=== PATIENT | female | born 1940 | race Two or more races ===

== ENCOUNTER 2020-03-21 10:48 | Emergency (ER) | payer OTHER ==
[~2020-03-21] VITALS: Ht 154.9 cm; Wt 46.7 kg
[2020-03-21] MEDS ORDERED: ADALAT CC90 MG (11:06)
[2020-03-21] MEDS ORDERED: HYZAAR 100-12.1 EACH (11:06)
[2020-03-21] MEDS ORDERED: XARELTO20 M1 (11:06)
[2020-03-21] MEDS ORDERED: ISOSORBIDE DINI30 MG (11:07)
[2020-03-21] MEDS ORDERED: LIPITOR20 MG (11:08)
== END 2020-03-21 16:02 | disposition home or self-care (01) ==
LOC: ER 10:48
DX: I73.89 Other specified peripheral vascular diseases (principal); I10 Essential (primary) hypertension

== ENCOUNTER 2020-05-06 16:29 | Emergency (ER) | payer OTHER ==
[~2020-05-06] VITALS: Ht 154.9 cm; Wt 47.6 kg
[~2020-05-06 16:29] MED LIST: ADALAT CC90 MG; HYZAAR 100-12.1 EACH; ISOSORBIDE DINI30 MG; LIPITOR20 MG; XARELTO20 M1
== END 2020-05-06 22:32 | disposition home or self-care (01) ==
LOC: ER 16:29 → CPU-OBS 16:31 → ER 16:31
DX: I11.0 Hypertensive heart disease with heart failure (principal); I50.9 Heart failure, unspecified; Z03.818 Encounter for observation for suspected exposure to other biological agents ruled out; R53.83 Other fatigue; R05 Cough

== ENCOUNTER 2020-09-15 16:44 | Emergency (ER) | payer OTHER ==
[~2020-09-15] VITALS: Ht 160 cm; Wt 52.2 kg
== END 2020-09-16 00:27 | disposition home or self-care (01) ==
LOC: ER 16:44
DX: N39.0 Urinary tract infection, site not specified (principal); E86.0 Dehydration; E87.8 Other disorders of electrolyte and fluid balance, not elsewhere classified; B96.29 Other Escherichia coli [E. coli] as the cause of diseases classified elsewhere; R31.29 Other microscopic hematuria; R53.81 Other malaise; G62.0 Drug-induced polyneuropathy; L29.8 Other pruritus; T50.8X5A Adverse effect of diagnostic agents, initial encounter; Y92.89 Other specified places as the place of occurrence of the external cause; Z03.818 Encounter for observation for suspected exposure to other biological agents ruled out

== ENCOUNTER 2020-09-16 18:13 | Emergency (ER) | payer OTHER ==
[~2020-09-16] VITALS: Ht 160 cm; Wt 51.7 kg
== END 2020-09-16 23:43 | disposition home or self-care (01) ==
LOC: ER 18:13
DX: G62.0 Drug-induced polyneuropathy (principal); L29.8 Other pruritus; T50.8X5A Adverse effect of diagnostic agents, initial encounter; Y92.89 Other specified places as the place of occurrence of the external cause

== ENCOUNTER 2020-09-20 20:35 | Inpatient (IN) | payer OTHER ==
[~2020-09-20] VITALS: Ht 61 cm; Wt 5.0 kg
[2020-09-23] MEDS ORDERED: ISOSORBIDE MONO30 MG PO (14:38)
[2020-09-23] MEDS ORDERED: LIPITOR20 MG PO (14:38)
[2020-09-23] MEDS ORDERED: PROCARDIA XL90 MG PO (14:38)
[2020-09-23] MEDS ORDERED: XARELTO15 MG PO (14:38)
== END 2020-09-23 16:12 | disposition home or self-care (01) | DRG 917 ==
LOC: ER 20:35 → SEC-K 09-21 09:28 → MEDJ 09-21 11:16 → MEDI 09-21 11:16 → SURH 09-21 20:20
PROVIDERS: ADMIT Internal Medicine; ATTEND Internal Medicine
PROC: B24BZZZ Ultrasonography of Heart with Aorta (ICD-10-PCS; principal; 2020-09-21)
PROC: BT43ZZZ Ultrasonography of Bilateral Kidneys (ICD-10-PCS; 2020-09-21)
PROC: 4A12X4Z Monitoring of Cardiac Electrical Activity, External Approach (ICD-10-PCS; 2020-09-21)
DX: T50.8X1A Poisoning by diagnostic agents, accidental (unintentional), initial encounter (principal); N17.0 Acute kidney failure with tubular necrosis; I50.30 Unspecified diastolic (congestive) heart failure; N14.1 Nephropathy induced by other drugs, medicaments and biological substances; I11.0 Hypertensive heart disease with heart failure; I48.91 Unspecified atrial fibrillation; E86.0 Dehydration; R79.89 Other specified abnormal findings of blood chemistry; I35.0 Nonrheumatic aortic (valve) stenosis

== ENCOUNTER 2020-10-02 20:51 | Emergency (ER) | payer OTHER ==
[~2020-10-02] VITALS: Ht 160 cm; Wt 53.1 kg
[~2020-10-02 20:51] MED LIST changes: +ISOSORBIDE MONO30 MG PO; +LIPITOR20 MG PO; +PROCARDIA XL90 MG PO; +XARELTO15 MG PO
== END 2020-10-03 03:28 | disposition home or self-care (01) ==
LOC: ER 20:51
DX: U07.1 COVID-19 (principal); J06.9 Acute upper respiratory infection, unspecified

== ENCOUNTER 2020-10-13 18:11 | Emergency (ER) | payer OTHER ==
[~2020-10-13] VITALS: Ht 160 cm; Wt 47.6 kg
== END 2020-10-13 21:26 | disposition home or self-care (01) ==
LOC: ER 18:11
DX: U07.1 COVID-19 (principal); R06.02 Shortness of breath

== ENCOUNTER 2020-11-07 18:27 | Emergency (ER) | payer OTHER ==
[~2020-11-07] VITALS: Ht 157.5 cm; Wt 58.1 kg
== END 2020-11-07 21:23 | disposition home or self-care (01) ==
LOC: ER 18:27
DX: U07.1 COVID-19 (principal)

== ENCOUNTER 2020-11-17 14:20 | Emergency (ER) | payer OTHER | END 2020-11-17 16:18 | disposition home or self-care (01) | LOC: ER 14:20 | DX: R53.81 Other malaise (principal); R51.9 Headache, unspecified; Z03.818 Encounter for observation for suspected exposure to other biological agents ruled out ==

== ENCOUNTER 2020-12-18 23:02 | Emergency (ER) | payer OTHER ==
[~2020-12-18] VITALS: Ht 157.5 cm; Wt 45.4 kg
== END 2020-12-19 10:35 | disposition home or self-care (01) ==
LOC: ER 23:02
DX: L03.818 Cellulitis of other sites (principal); L89.159 Pressure ulcer of sacral region, unspecified stage; B96.89 Other specified bacterial agents as the cause of diseases classified elsewhere; B95.2 Enterococcus as the cause of diseases classified elsewhere; B37.89 Other sites of candidiasis

== ENCOUNTER 2021-02-09 10:52 | Emergency (ER) | payer OTHER ==
[~2021-02-09] VITALS: Ht 162.6 cm; Wt 52.2 kg
[2021-02-09] MEDS ORDERED: ELIQUIS2.5 MG PO (11:22)
[2021-02-09] MEDS ORDERED: LASIX20 MG PO (11:22)
[2021-02-09] MEDS ORDERED: KAPSPARGO SPRIN25 MG PO (11:23)
== END 2021-02-09 13:09 | disposition home or self-care (01) ==
LOC: ER 10:52
DX: S40.021A Contusion of right upper arm, initial encounter (principal); X58.XXXA Exposure to other specified factors, initial encounter; Y93.89 Activity, other specified; Y92.89 Other specified places as the place of occurrence of the external cause; Y99.8 Other external cause status

== ENCOUNTER 2021-02-17 22:32 | Emergency (ER) | payer OTHER ==
[~2021-02-17] VITALS: Ht 162.6 cm; Wt 49.9 kg
[~2021-02-17 22:32] MED LIST changes: +ELIQUIS2.5 MG PO; +KAPSPARGO SPRIN25 MG PO; +LASIX20 MG PO
[2021-02-18] MEDS ORDERED: CEFUROXIME250 MG PO (03:14)
== END 2021-02-18 03:25 | disposition home or self-care (01) ==
LOC: ER 22:32
DX: N39.0 Urinary tract infection, site not specified (principal); R50.9 Fever, unspecified; Z20.822 Contact with and (suspected) exposure to COVID-19

== ENCOUNTER 2021-02-23 16:11 | Inpatient (IN) | payer OTHER ==
[~2021-02-23] VITALS: Ht 162.6 cm; Wt 45.4 kg
[~2021-02-23 16:11] MED LIST changes: +CEFUROXIME250 MG PO
--- NOTE | 2021-02-23 16:26 | NUR ---
PTE ALERTA Y ORIENTADA X3 EN SILLA DE [place]. PTE WANDA CONSIGO COPIA DE LABORATORIO DONDE PRESENTA CREATININA EN 2.48 DE HACEN 2 SINGH.PTE NO REFIERE DOLOR.
--- NOTE | 2021-02-23 16:56 | NUR ---
PTE FEMENINA ALERTA Y ORIENTADA EN LAS SIENA ESFERAS ES EVALUADA POR . SE ORIENTA SOBRE ORDENES DE [place] REFIERE COMPRENDER. SE COLECTAN MUESTRAS DE LABORATORIO Y CANALIZA VENA BAJO MEDIDAS ASEPTICAS. SE ADMINISTRAN MEDICAMENTOS, BAJO MEDIDAS ASEPTICAS. SE ENTREGA ENVASE PARA COLECCION DE MUESTRA DE U/A Y U/C Y SE ORIENTA.
== END 2021-02-28 14:25 | disposition home or self-care (01) | DRG 683 ==
LOC: ER 16:11 → ICU 19:42 → ICU-2 19:42 → SURG 19:42 → ICU 02-24 04:23 → SURG 02-25 14:52
PROVIDERS: ADMIT Internal Medicine; ATTEND Internal Medicine
PROC: 4A033R1 Measurement of Arterial Saturation, Peripheral, Percutaneous Approach (ICD-10-PCS; principal; 2021-02-23)
PROC: BT43ZZZ Ultrasonography of Bilateral Kidneys (ICD-10-PCS; 2021-02-24)
PROC: B246YZZ Ultrasonography of Right and Left Heart using Other Contrast (ICD-10-PCS; 2021-02-25)
DX: N17.8 Other acute kidney failure (principal); I50.20 Unspecified systolic (congestive) heart failure; N39.0 Urinary tract infection, site not specified; J90 Pleural effusion, not elsewhere classified; I35.0 Nonrheumatic aortic (valve) stenosis; I48.0 Paroxysmal atrial fibrillation; I73.89 Other specified peripheral vascular diseases; I10 Essential (primary) hypertension; N18.9 Chronic kidney disease, unspecified; B95.2 Enterococcus as the cause of diseases classified elsewhere; Z79.01 Long term (current) use of anticoagulants; Z95.4 Presence of other heart-valve replacement; Z20.822 Contact with and (suspected) exposure to COVID-19